=== PATIENT | female | born 1985 | race Caucasian/White ===

== ENCOUNTER 2020-04-01 13:02 | Emergency (ER) | payer MEDICAID ==
[~2020-04-01] VITALS: Ht 157.5 cm; Wt 88.5 kg
[2020-04-01 13:09] VITALS: Ht 157.5 cm; Wt 88.5 kg
[2020-04-01 14:27] LABS: BASOPHIL % 0.1 % (0.2-1.3); PLATELET COUNT 309 x10^3mcL (179-408); RED CELL DISTRIBUTION WIDTH 12.4 % (12.3-17.7)
[2020-04-01 14:34] LABS: CALCIUM 8.7 mg/dL (8.5-10.1); CARBON DIOXIDE 26.7 mmol/L (21-32); CHLORIDE SERUM 102 mmol/L (98-107); CREATININE SERUM 0.8 mg/dL (0.6-1.0); GFR1 > 60 mL/min; GLUCOSE SERUM 130 mg/dL (74-106); POTASSIUM SERUM 3.9 mmol/L (3.5-5.1); SODIUM SERUM 136 mmol/L (136-145)
[2020-04-01 14:35] LABS: rbc morphology (normal/abnorm) NORMAL (NORMAL)
[2020-04-01 14:39] LABS: ALBUMIN 3.5 g/dL (3.4-5.0); ALKALINE PHOSPHATASE 60 U/L (46-116); ALT/SGPT 27 U/L (14-59); AST/SGOT 13 U/L (15-37); BILIRUBIN TOTAL 0.3 mg/dL (0.20-1.00); TOTAL PROTEIN, SERUM 6.8 g/dL (6.4-8.2)
[2020-04-01 16:25] VITALS: BP 120/75
== END 2020-04-01 16:25 | disposition home or self-care (01) ==
LOC: ED 13:02
DX: N83.8 Other noninflammatory disorders of ovary, fallopian tube and broad ligament (principal); D72.829 Elevated white blood cell count, unspecified
CPT/HCPCS: J1885

== ENCOUNTER 2020-04-04 19:58 | Inpatient (IN) | payer MEDICAID ==
[~2020-04-04] VITALS: Ht 157.5 cm; Wt 71.2 kg
[2020-04-04 20:18] VITALS: Ht 157.5 cm; Wt 71.2 kg
[2020-04-04 21:18] LABS: BASOPHIL % 0.2 % (0.2-1.3); PLATELET COUNT 301 x10^3mcL (179-408); RED CELL DISTRIBUTION WIDTH 12.9 % (12.3-17.7)
[2020-04-04 21:29] LABS: CALCIUM 9.5 mg/dL (8.5-10.1); CARBON DIOXIDE 29.5 mmol/L (21-32); CHLORIDE SERUM 100 mmol/L (98-107); CREATININE SERUM 0.8 mg/dL (0.6-1.0); GFR1 > 60 mL/min; GLUCOSE SERUM 96 mg/dL (74-106); POTASSIUM SERUM 4.3 mmol/L (3.5-5.1); SODIUM SERUM 137 mmol/L (136-145); rbc morphology (normal/abnorm) NORMAL (NORMAL)
[2020-04-04 21:31] LABS: ALKALINE PHOSPHATASE 60 U/L (46-116); ALT/SGPT 30 U/L (14-59); AST/SGOT 20 U/L (15-37); BILIRUBIN TOTAL 0.6 mg/dL (0.20-1.00); LIPASE 112 IU/L (73-393); TOTAL PROTEIN, SERUM 7.7 g/dL (6.4-8.2)
[2020-04-05 09:08] LABS: BASOPHIL % 0.2 % (0.2-1.3); PLATELET COUNT 291 x10^3mcL (179-408); RED CELL DISTRIBUTION WIDTH 12.8 % (12.3-17.7)
[2020-04-05 09:35] LABS: CALCIUM 8.7 mg/dL (8.5-10.1); CARBON DIOXIDE 24.7 mmol/L (21-32); CHLORIDE SERUM 104 mmol/L (98-107); CREATININE SERUM 0.6 mg/dL (0.6-1.0); GFR1 > 60 mL/min; GLUCOSE SERUM 96 mg/dL (74-106); MAGNESIUM 2.1 mg/dL (1.8-2.4); PHOSPHOROUS 3.7 mg/dL (2.5-4.9); POTASSIUM SERUM 3.7 mmol/L (3.5-5.1); SODIUM SERUM 139 mmol/L (136-145)
[2020-04-05 12:58] LABS: rbc morphology (normal/abnorm) ABNORMAL (NORMAL)
[2020-04-05 13:16] VITALS: BP 134/77
[2020-04-05 17:06] VITALS: BP 118/73
[2020-04-05 21:06] VITALS: BP 119/72
[2020-04-06 05:06] VITALS: BP 105/72
[2020-04-06 07:46] VITALS: BP 95/57
[2020-04-06 12:17] VITALS: BP 123/63
[2020-04-06 16:15] VITALS: BP 101/53
[2020-04-06] MEDS ORDERED: IBU800 M2 PO (18:07)
[2020-04-06 18:10] VITALS: BP 101/53
[2020-04-06] MEDS ORDERED: DULCOLAX5 M1 PO (18:11)
[2020-04-06] MEDS ORDERED: GAS RELIEF MAX166 MG PO (18:13)
== END 2020-04-06 19:50 | disposition home or self-care (01) | DRG 532 ==
LOC: ED 19:58 → MU 22:55
PROVIDERS: Student in an Organized Health Care Education/Training Program; ADMIT Internal Medicine; ATTEND Internal Medicine
DX: N83.291 Other ovarian cyst, right side (principal); Z20.822 Contact with and (suspected) exposure to COVID-19
CPT/HCPCS: 90658; G0378; J2270; J7030